=== PATIENT | female | born 1995 | race Caucasian/White ===

== ENCOUNTER 2023-08-25 10:36 | Emergency (ER) | payer MEDICAID ==
[~2023-08-25] VITALS: Ht 170.2 cm; Wt 69.2 kg
[2023-08-25 11:32] LABS: BILIRUBIN,URINE NEGATIVE (Neg); CLARITY,URINE CLEAR (Clear); COLOR,URINE YELLOW (Yellow); GLUCOSE, URINE NEGATIVE (Neg); KETONES,URINE NEGATIVE (Neg); LEUKOCYTE ESTERASE ,URINE NEGATIVE (Neg); NITRITES, URINE NEGATIVE (Neg); OCCULT BLOOD,URINE NEGATIVE (Neg); PH,URINE 5.5 (4.8-8.0); PROTEIN,URINE NEGATIVE (Neg); UROBILINOGEN,URINE 0.2 E.U/dL (0.2-1.0)
[2023-08-25 11:34] LABS: BASOPHILS % (AUTO) 0.3 % (0-1); EOSINOPHILS % (AUTO) 0.2 % (0-6); HEMATOCRIT 38.6 % (35.0-45.0); HEMOGLOBIN 12.8 g/dl (12.0-16.0); LYMPHOCYTES # (AUTO) 1.9 X10'3 (1.1-4.8); LYMPHOCYTES % (AUTO) 22.1 % (21-51); MEAN CORPUSCULAR HEMOGLOBIN 27.9 PG (27.0-31.0); MEAN CORPUSCULAR HGB CONC 33.2 g/dL (33.0-36.5); MEAN CORPUSCULAR VOLUME 84.1 FL (78-98); MEAN PLATELET VOLUME 7.6 FL (7.4-10.4); MONOCYTES # (AUTO) 0.6 X10'3 (0-0.9); MONOCYTES % (AUTO) 6.7 % (2-12); NEUTROPHILS # (AUTO) 6.1 X10'3 (1.8-7.7); NEUTROPHILS % (AUTO) 70.7 % (42-75); PLATELET COUNT 334 X10'3 (140-440); RED BLOOD COUNT 4.59 X10'6 (4.20-5.60); RED CELL DISTRIBUTION WIDTH 15.6 % (11.5-14.5); WHITE BLOOD COUNT 8.6 X10'3 (4.5-11.0)
[2023-08-25 11:37] LABS: UA COLLECTION TYPE CLN CATCH MIDSTREAM
[2023-08-25 12:27] LABS: ALANINE AMINOTRANSFERASE 19 U/L (12-78); ALBUMIN/GLOBULIN RATIO 1.4 (1.1-1.5); ALKALINE PHOSPHATASE 88 IU/L (46-116); ASPARTATE AMINO TRANSFERASE 9 U/L (10-37); BILIRUBIN,TOTAL 0.2 MG/DL (0.1-1.0); BLOOD UREA NITROGEN 20 MG/DL (7-18); CALCIUM 8.9 MG/DL (8.5-10.1); GLUCOSE 101 MG/DL (70-104); SODIUM 145 MMOL/L (135-145); TOTAL CARBON DIOXIDE 28.2 MMOL/L (24-32); TOTAL PROTEIN 6.8 G/DL (6.4-8.2); eCRCL 100 ML/MIN; eGFR 84 ML/MIN
[2023-08-25 12:31] LABS: LIPASE 22 U/L (16-77)
[2023-08-25 12:40] LABS: ANION GAP 10 (8-16); BETA HCG,QUANTITATIVE < 1.0 mIU/ml; CHLORIDE 107 MMOL/L (99-107)
[2023-08-25] MEDS: normal saline 1000ml 1,000 ML IV ONE ×2 (12:47→15:46)
[2023-08-25] MEDS: ondansetron/PF 4mg/2ml inj IV ONE (12:48)
[2023-08-25] MEDS: ketorolac trometh. 30mg/ml inj. IV ONE (12:48)
[2023-08-25] MEDS ORDERED: morphine 2 MG/ML inj. syringe IV PRN (13:40)
[2023-08-25] MEDS ORDERED: ONDA4TAB12 PO (15:54)
[2023-08-25 16:02] VITALS: BP 124/81; PULSE 74; RESP 16; TEMP 98; O2SAT 98
== END 2023-08-25 16:08 | disposition home or self-care (01) ==
LOC: ER 10:36
DX: R10.31 Right lower quadrant pain (principal); F32.A Depression, unspecified
CPT/HCPCS: 36415; 71045; 74176; 80053; 81003; 83690; 84702; 85025; 96361; 96374; 96375; 99285; J1885; J2405; J7030

== ENCOUNTER → 2024-10-02 | Outpatient (CLI) | payer MEDICAID ==
[~2024-10-02] MED LIST: ONDA-243 PO; iohexol 300mg/ml 100ml inj. ONE
== END | disposition home or self-care (01) ==
LOC: 64 CT 10:16
PROVIDERS: ATTEND Physician Assistant
DX: R22.0 Localized swelling, mass and lump, head (principal)
CPT/HCPCS: 70470; Q9967

== ENCOUNTER 2024-10-26 15:33 | Outpatient (CLI) | payer MEDICAID ==
--- NOTE | 2024-10-26 21:48 | RADIOLOGY REPORT ---
HISTORY: MASS OF SUBMANDIBULAR REGION TECHNIQUE: Nonenhanced axial images through the facial bones with coronal and sagittal MPR. COMPARISON: NONE Radiation Dose Information: CT Dose: CTDI volume is 54.18 mGy. Dose-length product is 2024.45 mGy*cm FINDINGS: Mandible: Intact no fracture Maxilla: Normal Pterygoid plates: Normal bilateral Zygomatic processes: Intact bilaterally. Zygomatic arches: Bilateral Orbits: Intact bilaterally Sinuses: Normal Facial swelling: No significant swelling IMPRESSION: 1. No acute facial fractures. 2. Suboptimal study without IV contrast. Radiation optimization: All CT scans at this facility use at least one of these dose optimization jennifer hniques: automated exposure control mA and/or kV adjustment per patient size (includes targeted exam s where dose is matched to clinical indication) or iterative reconstruction.
== END 2024-10-26 23:59 | disposition home or self-care (01) ==
LOC: RAD 15:33
PROVIDERS: ATTEND Physician Assistant
DX: S70.251A Superficial foreign body, right hip, initial encounter (principal); R59.0 Localized enlarged lymph nodes; X58.XXXA Exposure to other specified factors, initial encounter; Y93.9 Activity, unspecified; Y92.89 Other specified places as the place of occurrence of the external cause; Y99.8 Other external cause status
CPT/HCPCS: 70488; Q9967